=== PATIENT | male | born 1985 | race Caucasian/White ===

== ENCOUNTER 2022-05-10 20:22 | Emergency (ER) | payer OTHER ==
[2022-05-10 20:28] VITALS: BP 134/92; PULSE 79; RESP 16; TEMP 98.1; BMI 34.8
[2022-05-10] MEDS ORDERED: KETOROLAC TROMETHAMINE 30 MG/1 ML VIAL IVPUSH ONE (21:20)
[2022-05-10] MEDS ORDERED: SODIUM CHLORIDE 1,000 ML IV ONE (21:20)
== END 2022-05-10 21:39 | disposition home or self-care (01) ==
LOC: FER 20:22
DX: R05.3 Chronic cough (principal)
CPT/HCPCS: 71045-TC-FY; 99283-25

== ENCOUNTER 2022-06-15 20:08 | Emergency (ER) | payer OTHER ==
[2022-06-15 20:21] VITALS: PULSE 63; RESP 16; TEMP 98.6; BMI 35.8
[2022-06-15] MEDS ORDERED: KETOROLAC TROMETHAMINE 30 MG/1 ML VIAL IVPUSH ONE (20:47)
[2022-06-15] MEDS ORDERED: KETOROLAC TROMETHAMINE 30 MG/1 ML VIAL ONE (20:50)
[2022-06-15] MEDS ORDERED: SODIUM CHLORIDE 1,000 ML IV ONE (20:53)
[2022-06-15 21:02] LABS: HEMATOCRIT 39.9 % (35.4-49); HEMOGLOBIN 13.5 G/dL (11.7-16.9); MCH 29.7 pg (25.7-33.7); MCHC 33.9 g/dl (32.0-35.9); MEAN CELL VOLUME 87.6 fl (80-96); MEAN PLT VOLUME 7.9 fl (7.5-11.1); PLATELET COUNT 257.4 10^3/uL (134-434); RBC 4.55 10^6/uL (4.00-5.60); RDW 14.2 % (11.9-15.9); WHITE BLOOD COUNT 8.8 10^3/uL (4.0-10.8)
[2022-06-15 21:22] LABS: ALBUMIN 4.2 g/dl (3.4-5.0); BILIRUBIN,TOTAL 0.7 mg/dl (0.2-1); CREATININE 1.2 mg/dl (0.55-1.3); POTASSIUM 3.8 mmol/L (3.5-5.1); TOT PROT 6.9 g/dl (6.4-8.2)
[2022-06-15 21:34] VITALS: BP 157/105
== END 2022-06-15 22:47 | disposition home or self-care (01) ==
LOC: FER 20:08
PROC: 3E0333Z Introduction of Anti-inflammatory into Peripheral Vein, Percutaneous Approach (ICD-10-PCS; principal; 2022-06-15)
PROC: 3E0337Z Introduction of Electrolytic and Water Balance Substance into Peripheral Vein, Percutaneous Approach (ICD-10-PCS; 2022-06-15)
DX: M54.50 Low back pain, unspecified (principal); R10.2 Pelvic and perineal pain
CPT/HCPCS: 36415; 74176-TC; 80053; 81003; 81015; 85027; 87086; 99284-25

== ENCOUNTER 2022-10-15 21:06 | Emergency (ER) | payer OTHER ==
[2022-10-15 21:12] VITALS: BP 152/96; PULSE 65; RESP 18; TEMP 98.1; BMI 36.2
== END 2022-10-15 22:40 | disposition home or self-care (01) ==
LOC: JERFT 21:06
DX: U07.1 COVID-19 (principal)
CPT/HCPCS: 87635; 99283-25

== ENCOUNTER 2023-05-22 09:03 | Emergency (ER) | payer OTHER ==
[2023-05-22 09:08] VITALS: BP 122/82; PULSE 95; RESP 18; TEMP 98.1; BMI 36.2
== END 2023-05-22 11:32 | disposition home or self-care (01) ==
LOC: JER 09:03
DX: M25.512 Pain in left shoulder (principal); M25.474 Effusion, right foot; V89.2XXA Person injured in unspecified motor-vehicle accident, traffic, initial encounter
CPT/HCPCS: 73030-TC-LT-FY; 99283-25